=== PATIENT | male | born 1945 | race African-American/Black ===

== ENCOUNTER 2019-07-01 11:18 | Inpatient (IN) | payer OTHER ==
[~2019-07-01] VITALS: Ht 188 cm; Wt 93.0 kg
[~2019-07-01 11:18] MED LIST: AMLODIPINE BESY10 MG PO; ASPIR-LOW81 MG PO; BETIMOL5 M1 OPTH; COREG6.25 MG PO; COZAAR25 MG PO; CYMBALTA60 MG PO; DYAZIDE 37.5-251 EA; DYAZIDE 37.5-251 EA PO; ENSURE LIQUID237 ML PO; FLOMAX0.4 MG PO; FUROSEMIDE40 MG PO; GLIPIZIDE10 MG PO; GLUCOPHAGE850 MG PO; GLUCOTROL10 MG PO; HUMULIN R100 UNIT/1 INJ; KEFLEX500 MG PO; LANTUS100 UNITS/ SUB-Q; LATANOPROST2.5 ML OPTH; LODINE400 MG PO; MORPHINE IM; OXYCODONE HCL5 MG PO; PRILOSEC OTC20 MG PO; PROSCAR5 MG PO; QVAR7.3 G1 INH; REMERON15 M1 PO; SALINE NASAL SP45 ML; SIMVASTATIN10 MG PO; TIMOPTIC 0.5%1 EACH; VENTOLIN HFA18 GM INH; VITAMIN B122500 MCG PO; ZOCOR10 MG PO; ZYRTEC10 M3 PO; ZYRTEC10 MG PO; [UNRECOGNIZED DRUG - OTHER]
[2019-08-03] MEDS ORDERED: CAPZASIN-HP42.5 GM TOP (06:32)
[2019-08-03] MEDS ORDERED: BENADRYL25 MG PO (06:32)
[2019-08-03] MEDS ORDERED: ZOCOR10 MG PO (06:45)
--- NOTE | 2019-08-03 12:48 | NUR ---
08/03/19 1248 Elio,Yamileth 1236 PT ARRVIED TO PACU RESP EVEN AND UNLABORED. VSS. PT WAKES TO TACTILE STIMULI AND IS REORIENTED TO PACU. PT BACK TO SLEEP AND SNORING NOTED. 1244 PT WAKES AGAIN AND DENIES PAIN AND REPORTS UNABLE TO MOVE HIS LEG AND FEET. PT FALLS EASILY BACK TO SLEEP. 1246 PT WAKES OFF AND ON, O2 DECREASED TO 92%. PT WAKES AND IS ENCOUARGED TO DEEP BREATHE.
--- NOTE | 2019-08-03 14:45 | NUR ---
PT IS REPORTING PAIN GOING UP HIS LEG AND IN HIS LEFT SIDE. PT WOULD LIKE SOMETHING FOR PAIN. CALL LIGHT IN REACH. [employer] OFFICERS AT BEDSIDE. NO ADDITIONAL NEEDS.
--- NOTE | 2019-08-03 15:25 | NUR ---
NEW ADMIT TO THE FLOOR. PT AWAKE, A&OX4. PT REPORTING 7/10 RIGHT HIP PAIN. ADMIN DILAUDID 4MG PO FOR THIS PAIN. FOOD ORDERED FOR PT. PT'S SPINAL HAS RESOLVED. PT REPORTING FULL SENSATION TO LOWER EXTREMITIES. CMS INTACT TO RIGHT LEG. DRESSING CDI TO RIGHT HIP. PT DENIES NUASEA. NO NEEDS AT THIS TIME. TWO CORRECTIONAL GUARDS AT BEDSIDE. CALL LIGHT WITHIN REACH.
--- NOTE | 2019-08-03 16:26 | NUR ---
PT SITTING IN BED, HOB ELEVATED. PT REPORTING 5/10 RIGHT HIP AND LEFT BACK PAIN. PT RECEIVED RECENT DILAUDID 4MG PO FOR RIGHT HIP PAIN. VS STABLE, CMS INTACT. PT'S DRESSING CDI. NO NEEDS AT THIS TIME. TWO CORRECTIONAL GUARDS IN ROOM. PERSONAL SUPPLIES AND CALL LIGHT WITHIN REACH.
--- NOTE | 2019-08-03 22:24 | NUR ---
V/S, I&O AND BLOOD SUGAR CHECK DONE AND CHARTED.
--- NOTE | 2019-08-03 23:08 | NUR ---
PT UP TO USE BEDSIDE URINAL WITH FWW, SBA. PT TOLERATED WELL. NO OTHER NEEDS. CALL LIGHT IN REACH.
--- NOTE | 2019-08-04 00:12 | NUR ---
PATIENT ASKING FOR HIS BENADRYL WHICH HE USUALLY GETS AT NIGHT FOR SLEEP AND HIS PAIN IS STILL 8/10. 8MG PO DILAUDID GIVEN ALONG WITH 25MG IV BENADRYL AND A CUP OF COFFEE WHICHPATIENT BELIEVES WILL SETTLE HIS NERVES AND HELP HIM SLEEP. ICE WATER GLASS ALSO FILLED AND NEW BAG OF FLUIDS HUNG. [facility] AT BEDSIDE AND PATIENT IN [employer] RESTRAINTS. OFFICER JUANIS GOT ME ON THE PHONE WITH [facility] AT [facility] AND THEY ARE GOING TO TRY AND SEND OVER PATIENT'S EYE DROPS WITH A CHANGE OF SHIFT OF THE OFFICERS FOR THE PATIENT TO HAVE TOMORROW. CALL LIGHT IN REACH.
--- NOTE | 2019-08-04 01:28 | NUR ---
PATIENT JUST GOT DONE STANDING AT BEDSIDE TO VOID A SMALL AMOUNT IN THE URINAL WITH [employer] OFFICERS' HELP AND THIS NURSE. PATIENT BACK IN BED AND HIS PAIN IS DOWN TO A 5/10 NOW. HE IS GOING TO FINISH HIS TV SHOW AND TRY TO GO TO SLEEP. PATIENT REMAINS IN [employer] RESTRAINTS AND 2 OFFICERS AT BEDSIDE. PATIENT HAS ICE BAGS TO HIS HIP AND PILLOWS BETWEEN LEGS WITH SCD'S AND HEAL PROTECTORS IN PLACE. CALL LIGHT IN REACH.
--- NOTE | 2019-08-04 03:30 | NUR ---
PATIENT GOT UP AND STOOD AT THE BEDSIDE TO URINATE IN THE URINAL WITH HELP OF 2 OFFICERS AND USING A URINAL AND HE WALKED AROUND THE ROOM WITH THE WALKER AND 2 PERSON ASSIST AND IS SITTING AT THE BEDSIDE VISITING WITH OFFICERS.
--- NOTE | 2019-08-04 05:45 | NUR ---
PATIENT HAS BEEN UP THROUGH THE NIGHT MULTIPLE TIMES TO URINATE THROUGH THE NIGHT. ALWAYS 2 [employer] OFFICERS IN THE ROOM WITH THE PATIENT AND HE HAS STANDARD [employer] RESTRAINTS ON PATIENT HAS TAKEN ONE WALK WITH 2 PERSON ASSIST AROUND HIS ROOM AND ONE WALK A SHORT DISTANCE DOWN THE HALLWAY WITH 2 PERSON ASSIST AND FWW IN THE ROOM. PATIENT ONLY HAD PO PAIN MEDS ONCE AND IS DOING WELL AND SOME IV BENADRYL FOR SLEEP, AND HAS CAT NAPPED THROUGH THE NIGHT. YOU CAN ALREADY SEE HE IS STRONGER THIS AM THAN LAST PM. CALL LIGHT IN REACH. PATIENT SITTING AT EDGE OF BED AND GETTING HIS AM LAB DRAW. CALL LIGHT IN REACH.
--- NOTE | 2019-08-04 07:29 | NUR ---
BEDSIDE HANDOFF REPORT RECEIVED FROM ENGINE HOSTLER RN ELODIA. PT RESTING IN BED, [employer] CORRECTIONS OFFICERS AT BEDSIDE. PT DENIES OTHER NEEDS AT THIS TIME.
--- NOTE | 2019-08-04 08:30 | NUR ---
PT AWOKEN FOR MORNING ASSESSMENT. PT ALERT AND ORIENTED. PT ON ROOM AIR, LUNG SOUNDS CLEAR, DENIES SOB. PT WITH PAIN 8/10 TO RIGHT HIP, GIVEN 10MG OXYCODONE. CMS INTACT, WITHOUT EDEMA, SCDS AND HEEL PROTECTORS IN PLACE. IV SALINE LOCKED PER ORDER. PT DENIES NAUSEA, BOWEL TONES ACTIVE, TOLERATING REGULAR DIET. RIGHT HIP WITH DRESSING CDI. DISCUSSED PLAN OF CARE FOR THE DAY, PLAN FOR P.T. PT DENIES OTHER NEEDS AT THIS TIME. [employer]RECTIONS OFFICERS IN ROOM.
--- NOTE | 2019-08-04 09:16 | OR ---
[facility] [address] [place], [place] [address] Signed DATE OF OPERATION: 08/03/2019 SURGEON: Dennis Matias MD PREOPERATIVE DIAGNOSIS: End-stage osteoarthritis, right hip. POSTOPERATIVE DIAGNOSIS: End-stage osteoarthritis, right hip. PROCEDURE: Right total hip arthroplasty using an uncemented 56 mm Hilliard Cup with two 25 mm screws, a neutral 36 liner, a size 7 Hebron stem high offset, and a 36 mm +1.5 head. ANESTHESIA: Spinal with sedation. SPECIMENS AND COMPLICATIONS: There were no specimens or complications. BLOOD LOSS: About 300. WHAT WAS DONE: The patient was taken to the operating room, placed on the table in supine position. After anesthesia was administered, the patient sedated. He was placed in a left lateral decubitus position, prepped and draped in a routine sterile fashion. Using a straight lateral approach to the hip, skin was divided centered over the tip of the greater trochanter. Subcutaneous tissue was bluntly spread and hemostasis was achieved with electrocautery. The deep fascia was incised in line with the skin incision. A Charnley retractor was placed. The anterior one-third of the gluteus medius was elevated off the greater trochanter and reflected medially. An anterior and superior capsulectomy was then performed. Hip was dislocated and the femoral neck was resected using the Hebron guide. We then removed the head and neck fragment and that had actually measured about 53 mm. We then retracted the femur posteriorly, exposed the acetabulum circumferentially by excising the labrum. I then used sequential hemispherical reamers and reamed the acetabulum up to 55 mm, which gave us a good fit and fill with good cancellous bone. We then impacted a 56 mm cup and secured it with two 25 mm screws. A neutral 36 liner was then placed. The proximal femur was then rotated up into the wound. The femur was prepared using a box chisel followed by the canal finder, the Electronically Signed By: DENNIS MATIAS MD 08/04/19 0916 PATIENT NAME: CHUY BROWN OPERATIVE REPORT DATE OF : 45 REPORT #: [id number] PHYSICIAN: DENNIS MATIAS MD PCP: BRENDA MCNULTY MD REPORT IS CONFIDENTIAL AND NOT TO BE RELEASED WITHOUT AUTHORIZATION [facility] [address] [place], [place] [address] Signed lateralizer, and a series of reamers and broaches. We had a very snug fit with a size 7 broach. We put standard neck and +1.5 36 mm head on the trial, reduced the hip and were happy with alignment, position, and leg length, but there was still just a little medial lateral laxity. We therefore dislocated the hip, removed all the trials, and inserted a size 7 high offset femoral stem. We then put the +1.5 36 mm head on the Campos taper and reduced the hip. Again, we had good alignment, good leg length, good stability and we had resolved the slight medial lateral laxity. The wound was copiously irrigated, closed in standard fashion, sterile dressing applied. The patient was placed in a hip abduction brace, awakened, and taken to recovery room where he arrived in stable condition. Counts were correct and antibiotic protocols were followed. Dennis Matias MD WFB/MODL /[id number] Copies: ~ Electronically Signed By: DENNIS MATIAS MD 08/04/19 0916 PATIENT NAME: CHUY BROWN OPERATIVE REPORT DATE OF : 45 REPORT #: [id number] PHYSICIAN: DENNIS MATIAS MD PCP: BRENDA MCNULTY MD REPORT IS CONFIDENTIAL AND NOT TO BE RELEASED WITHOUT AUTHORIZATION
[2019-08-04] MEDS ORDERED: OXYCODONE HCL E10 MG PO (10:39)
[2019-08-04] MEDS ORDERED: DILAUDID4 MG PO (10:41)
[2019-08-04] MEDS ORDERED: TYLENOL325 MG PO ×2 (10:42→11:22)
--- NOTE | 2019-08-04 10:50 | NUR ---
PATIENT RESTING IN BED. TWO GUARDS IN ROOM. THE STUDENT RN OBTAINED THE FOLLOWING VITAL SIGNS. I&O DONE. CALL LIGHT WITHIN REACH. NO OTHER NEEDS AT THIS TIME
[2019-08-04] MEDS ORDERED: XARELTO10 MG PO (10:52)
[2019-08-04] MEDS ORDERED: OXYCODONE HCL10 MG PO (11:14)
--- NOTE | 2019-08-04 13:00 | NUR ---
PT GIVEN 1 UNIT SS HUMALOG FOR BLOOD GLUCOSE 164. PT GIVEN 10 MG OXYCODONE FOR PAIN 03/31 AND FOR TRANSPORTATION BACK TO [facility]. DISCHARGE COMPLETED.
--- NOTE | 2019-08-04 20:01 | EKG ---
[facility] [address] [facility] [place] [address] Signed Normal sinus rhythm Low voltage QRS Borderline ECG No previous ECGs available Confirmed by NILSON RILEY MD ([id number]) on 08/04/2019 8:00:58 PM Electronically Signed By: NILSON RILEY MD 08/04/19 2001 PATIENT NAME: CHUY BROWN Electrocardiogram DATE OF : 45 PHYSICIAN: NILSON RILEY MD REPORT #: [id number] REPORT IS CONFIDENTIAL AND NOT TO BE RELEASED WITHOUT AUTHORIZATION
== END 2019-08-04 13:15 | disposition home or self-care (01) | DRG 470 ==
LOC: MS 07-20 06:45 → DSVR 08-03 06:10 → MS 08-03 15:20
PROVIDERS: ADMIT Orthopaedic Surgery
PROC: 3E0T3BZ Introduction of Anesthetic Agent into Peripheral Nerves and Plexi, Percutaneous Approach (ICD-10-PCS; 2019-08-03)
PROC: 0SR902A Replacement of Right Hip Joint with Metal on Polyethylene Synthetic Substitute, Uncemented, Open Approach (ICD-10-PCS; principal; 2019-08-03 09:00)
DX: M16.11 Unilateral primary osteoarthritis, right hip (principal); G89.18 Other acute postprocedural pain; R07.2 Precordial pain; I10 Essential (primary) hypertension; N40.0 Benign prostatic hyperplasia without lower urinary tract symptoms; E11.9 Type 2 diabetes mellitus without complications; F39 Unspecified mood [affective] disorder; H40.9 Unspecified glaucoma; J45.20 Mild intermittent asthma, uncomplicated; Z87.891 Personal history of nicotine dependence; Z88.8 Allergy status to other drugs, medicaments and biological substances; Z79.82 Long term (current) use of aspirin; Z79.4 Long term (current) use of insulin; Z79.899 Other long term (current) drug therapy
CPT/HCPCS: 01214; 36415; 64447; 72170; 73501; 76942; 80048; 84484; 85025; 93005; 93010; 94762; 97110; 97162; C1776; J0690; J1200; J1815; J2250; J2370; J2704; J2795; J7121